=== PATIENT | female | born 1965 | race Caucasian/White ===

== ENCOUNTER 2021-09-04 18:43 | Emergency (ER) | payer OTHER ==
[~2021-09-04] VITALS: Ht 170.2 cm; Wt 49.5 kg
[2021-09-04 19:24] VITALS: TEMP 98.1
[2021-09-04] MEDS ORDERED: PERCOCET 325 MG1 TA2 PO (21:16)
[2021-09-04] MEDS ORDERED: CRUTCHES MC (21:20)
[2021-09-04 21:41] VITALS: BP 153/85; PULSE 91
== END 2021-09-04 21:41 | disposition home or self-care (01) ==
LOC: COL.ER 18:43
DX: S92.101A Unspecified fracture of right talus, initial encounter for closed fracture (principal); Z89.421 Acquired absence of other right toe(s); Z88.6 Allergy status to analgesic agent; W01.0XXA Fall on same level from slipping, tripping and stumbling without subsequent striking against object, initial encounter
CPT/HCPCS: J1170; L4386